=== PATIENT | male | born 1985 | race Hispanic/Latino ===

== ENCOUNTER 2018-12-23 19:45 | Observation (INO) | payer OTHER ==
[~2018-12-23] VITALS: Ht 167.6 cm; Wt 84.8 kg
--- NOTE | 2018-12-23 20:56 | Diagnostic Imaging Report ---
EXAMINATION: CXR 2 VIEW - HOPD INDICATION: Headache, chest tightness ^20181223 ^2029 COMPARISON: None FINDINGS: PA and lateral views TUBES and LINES: None. LUNGS: Lungs are well inflated. There is no evidence of pneumonia or pulmonary edema. PLEURA: No pleural effusion or pneumothorax. HEART AND MEDIASTINUM: The cardiomediastinal silhouette is unremarkable.. BONES AND SOFT TISSUES: No focal osseous lesions. Soft tissues are unremarkable. UPPER ABDOMEN: No free air under the diaphragm. IMPRESSION: No acute thoracic abnormality. Signed by: Dr. Beck Ryan MD on 12/23/2018 8:52 PM
--- NOTE | 2018-12-23 21:04 | Diagnostic Imaging Report ---
EXAMINATION: Head CT without contrast. HISTORY:Headache, left-sided numbness. COMPARISON:None. TECHNIQUE: Multidetector axial images were obtained from the foramen magnum to the vertex without contrast. The images were reconstructed using brain and bone algorithms. Thin section brain images were reformatted into coronal and sagittal planes. Dose modulation, iterative reconstruction, and/or weight based adjustment of the mA/kV was utilized to reduce the radiation dose to as low as reasonably achievable. Intravenous contrast: None IMAGE QUALITY: Acceptable. FINDINGS: Skull/scalp: No lytic or blastic. lesions. No surgical changes. 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 No acute hemorrhage, mass or acute major vascular territorial infarct. Arteries: No density suggestive of thrombosis. Dural sinuses: No abnormal density suggestive of thrombosis. Ventricles: No hydrocephalus or displacement. Extra-axial spaces: Posterior fossa, retrocerebellar extra-axial cystic lesion may represent an arachnoid cyst or ovidio cisterna magna. Brain volume: Normal for age. Craniocervical junction: No mass, Chiari malformation, or basilar invagination. Sella: No mass. Paranasal/mastoid sinuses: Imaged portions unremarkable. IMPRESSION: No acute intracranial abnormality. Signed by: Dr. Brenda Torres M.D. on 12/23/2018 9:01 PM
[2018-12-23] MEDS ORDERED: POTASSIUM CHLORIDE 20 MEQ TAB CR PO STA (21:26)
[2018-12-23] MEDS ORDERED: ONDANSETRON HCL INJ 2MG/ML 2ML 2 MG/ML VIAL IV PRN (21:30)
[2018-12-23] MEDS ORDERED: SODIUM CHLORIDE FLUSH 10 ML SYR INJ PRN (21:30)
[2018-12-23] MEDS ORDERED: ASPIRIN 81 MG CHEW TAB PO NR (21:30)
[2018-12-23] MEDS ORDERED: ASPIRIN 81 MG CHEW TAB PO ONE (21:30)
[2018-12-23] MEDS ORDERED: POTASSIUM CHLORIDE 20 MEQ TAB CR PO NR (21:45)
--- OUTSIDE RECORDS SUMMARY | 2018-12-23 22:02 | XMS REPORT ---
Author Author [facility] Address Unknown Phone Unavailable Care Team Providers [employer] Worker Name Role Phone Ephraim LAMAS Unavailable Unavailable Problems This patient has no known problems. Allergies, Adverse Reactions, Alerts This patient has no known allergies or adverse reactions. Medications This patient has no known medications. Results Test Description Test Time Test Comments Text Results Atomic Results Result Comments CT BRAIN WO-HOPD 2018-12-23 20:56:00 [place] [address] Patient Name: TJ GIBBONS MR #: [id number] : 1985 Age/Sex: 33/M Req #: [id number] [facility] Physician: Ordered by: LINO LAMAS MD Report #: [id number] Location: [facility] Room/Bed: Procedure: [id number] HOPD/CT BRAIN WO-[facility] Exam Date: 12/23/18 Exam Time: 2029 REPORT STATUS: Signed EXAMINATION: Head CT without contrast. HIST ORY:Headache, left-sided numbness. COMPARISON:None. TECHNIQUE: Multidetector axial images were obtained from the foramen magnum to the vertex without contrast. The images were reconstructed using brain and bone algorithms. Thin section brain images were reformatted into coronal and sagittal planes. Dose modulation, iterative reconstruction, and/or weight based adjustment of the mA/kV was utilized to reduce the radiation dose to as low as reasonably achievable. Intravenous contrast: None IMAGE QUALITY: Acceptable. FINDINGS: Skull/scalp: No lytic or blastic. lesions. No surgical changes. 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 No acute hemorrhage, mass or acute major vascular territorial infarct. Arteries: No density suggestive of thrombosis. Dural sinuses: No abnormal density suggestive of thrombosis. Ventricles: No hydrocephalus or displacement. Extra-axial spaces: Posterior fossa, retrocerebellar extra-axial cystic lesion may represent an arachnoid cyst or ovidio cisterna magna. Brain volume: Normal for age. Craniocervical junction: No mass, Chiari malformation, or basilar invagination. Sella: No mass. Paranasal/mastoid sinuses: Imaged portions unremarkable. IMPRESSION: No acute intracranial abnormality. Signed by: Dr. Brenda Torres M.D. on 12/23/2018 9:01 PM Dictated By: BRENDA TORRES MD 00 Transcribed By: CHARITO on 12/23/18 1 COPY TO: LINO LAMAS MD CXR 2 VIEW - HOPD 2018-12-23 20:52:00 [place] [address] Patient Name: TJ GIBBONS MR #: [id number] : 1985 Age/Sex: 33/M Req #: [id number] Adm Physician: Ordered by: LINO LAMAS MD Report #: [id number] Location: [facility] Room/Bed: Procedure: [id number] HOPD/CXR 2 VIEW - HOPD Exam Date: 12/23/18 Exam Time: 2029 REPORT STATUS: Signed EXAMINATION: CXR 2 VIEW - HOPD INDICATION: Headache, chest tightness 20181223 COMPARISON: None FINDINGS: PA and lateral views TUBES and LINES: None. LUNGS: Lungs are well inflated. There is no evidence of pneumonia or pulmonary edema. PLEURA: No pleural effusion or pneumothorax. HEART AND MEDIASTINUM: The cardiomediastinal silhouette is unremarkable.. BONES AND SOFT TISSUES: No focal osseous lesions. Soft tissues are unremarkable. UPPER ABDOMEN: No free air under the diaphragm. IMPRESSION: No acute thoracic abnormality. Signed by: Dr. Migdalia Ryan MD on 12/23/2018 8:52 PM Dictated By: MIGDALIA RYAN MD 51 Transcribed By: CHARITO on 12/23/182051 COPY TO: LINO LAMAS MD
[2018-12-23 23:10] VITALS: BP 122/79
[2018-12-23 23:14] VITALS: BP 122/79
[2018-12-24 04:39] VITALS: BP 136/79
[2018-12-24 05:27] LABS: BASOPHILS # (AUTO) 0.1 (0.0-0.1); BASOPHILS % 0.6 % (0.0-1.0); EOSINOPHILS # (AUTO) 0.3 (0.0-0.4); EOSINOPHILS % 3.2 % (0.0-6.0); HEMATOCRIT 43.5 % (38.2-49.6); HEMOGLOBIN 14.8 g/dL (14.0-18.0); LYMPHOCYTES # (AUTO) 2.6 (1.0-3.2); LYMPHOCYTES % 33.2 % (18.0-39.1); MEAN CORPUSCULAR HEMOGLOBIN 27.8 pg (28-32); MEAN CORPUSCULAR VOLUME 81.6 fL (81-99); MONOCYTES # (AUTO) 0.5 (0.2-0.8); MONOCYTES % 6.4 % (4.4-11.3); NEUTROPHILS # (AUTO) 4.4 (2.1-6.9); NEUTROPHILS % 56.3 % (38.7-80.0); PLATELET COUNT 272 x10e3/uL (140-360); RED BLOOD COUNT 5.33 x10e6/uL (4.3-5.7); RED CELL DISTRIBUTION WIDTH 13.3 % (11.7-14.4)
[2018-12-24 05:50] LABS: CREATINE KINASE MB 2.4 ng/mL (0-5.0)
[2018-12-24 06:11] LABS: ALANINE AMINOTRANSFERASE 37 IU/L (0-55); ALBUMIN 3.9 g/dL (3.5-5.0); ALBUMIN/GLOBULIN RATIO 1.1 (0.8-2.0); ALKALINE PHOSPHATASE 113 IU/L (40-150); ANION GAP 13.6 mmol/L (8-16); BLOOD UREA NITROGEN 10 mg/dL (7-26); BUN/CREATININE RATIO 10 (6-25); CALCIUM 9.3 mg/dL (8.4-10.2); CARBON DIOXIDE 24 mmol/L (22-29); CHLORIDE 106 mmol/L (98-107); CREATININE, SERUM 1.01 mg/dL (0.72-1.25); EST GLOMERULAR FILTRATION RATE > 60 ML/MIN (60-); GLUCOSE 96 mg/dL (74-118); POTASSIUM 4.6 mmol/L (3.5-5.1); SODIUM 139 mmol/L (136-145)
--- NOTE | 2018-12-24 06:18 | NUR ---
Received patient lying in bed with eyes open. Respiration even and unlabored without SOB. Family member at bedside. Denies pain at this time. Call light in reach.
--- NOTE | 2018-12-24 06:34 | NUR ---
H&P cc: face and hand tingling (left) HPI: 33yoM, PCP None , developed tingling of left face, hand and left leg. Has had in past, but lasted longer; No focal weakness; no speech changes or confusion. PMH: cigarette use history, nicotine dependence in remission PSHx: none Allergies; see emrFh/Sh; ; quit cigs meds; see MAR ROS; no f/c/s/N/V/D/HUGHES/vision changes/cp/sob/leg pain/skin rash v/s; revd PE tired appearing anicteric ns1s2 mod bs soft nt nd no e/t skin dry n. affect no visual field deficits; motor 5/5/ in all ext; a&ox3 labs/meds revd A/P: TIA Obesity BMI 30.2 Nicotine dependence in remission PLAN CT negative; get MRI/A. PT consult. ASA; PT consult; hba1c/lipids lovenox Andrew Wilkinson MD, PhD.
[2018-12-24 08:00] VITALS: BP 139/85
[2018-12-24] MEDS ORDERED: ASPIRIN 81 MG CHEW TAB PO SCH (09:00)
[2018-12-24] MEDS ORDERED: ASPIRIN 81 MG ENTERIC COATED PO SCH (09:00)
[2018-12-24 09:37] VITALS: BP 139/85
--- NOTE | 2018-12-24 10:37 | NUR ---
Transported patient to MRI department at this time.
[2018-12-24] MEDS ORDERED: ACETAMINOPHEN 325 MG TAB PO PRN (12:00)
[2018-12-24] MEDS ORDERED: PRAVASTATIN SOD10 MG PO (12:33)
[2018-12-24] MEDS ORDERED: ASPIRIN CHEW81 MG PO (12:33)
--- NOTE | 2018-12-24 12:56 | Diagnostic Imaging Report ---
Examination: MRI BRAIN WO CONTRAST History: 33-year-old female with TIA, headaches and left arm numbness. Comparison studies: December 23, [address] Technique: Sagittal T2; axial DWI, FLAIR, GRE or SWI, T1, Coronal FLAIR. Intravenous contrast: None Findings: Scalp: No abnormal signal. No masses. Bone marrow: Normal in signal intensity. Brain volume: Adequate for age. No volume loss. Ventricles: Normal in size and configuration. No hydrocephalus. Extra-axial spaces: No acute abnormalities. Again demonstrated is a 3.6 x 3.5 x 3.6 cm (superoinferior x anteroposterior x transverse dimensions) CSF equal intensity lesion in the left retrocerebellar region without associated restricted diffusion and mild regional mass effect. This finding represents an arachnoid cyst. Parenchyma: No abnormal signal intensities. No masses, hemorrhage, acute or chronic vascular insults. Suprasellar and sellar region: No abnormalities. Craniocervical junction: No abnormalities. The foramen magnum is patent. No Chiari malformations. Vessels: Normal flow-voids in the arteries and sinuses. Additional findings:Retention cyst within the bilateral maxillary sinuses. IMPRESSION: No acute intracranial abnormalities, specifically, no acute infarct. Unchanged 3.6 x 3.5 x 3.6 cm left retrocerebellar arachnoid cyst when compared to prior head CT performed December 23, 2018. Signed by: Dr. Angeles Wilson M.D. on 12/24/2018 12:52 PM
[2018-12-24 13:00] LABS: CHOL/HDL RATIO 5.7 (3.9-4.7)
[2018-12-24 13:24] VITALS: BP 138/77
[2018-12-24 14:52] LABS: CREATINE KINASE MB 1.6 ng/mL (0-5.0)
--- NOTE | 2018-12-24 15:32 | Diagnostic Imaging Report ---
Neck and intracranial MRAs without IV contrast History: TIA Comparison studies: None Technique: Neck MRA: Axial 2-D [id number] with 3-D MIP reformats. Intracranial MRA: Axial 3-D [id number] with coronal, sagittal and 3-D MIP reformats. Neck MRA: If present, stenosis is calculated utilizing the NASCET method which calculates the degree of stenosis with reference to the normal lumen of the carotid artery distal to the stenosis. Findings: Common carotid arteries: Patent, no flow signal abnormalities Carotid bulbs: Patent, no (0%) stenosis by NASCET criteria. Internal carotid arteries: Patent, no flow signal abnormalities. Vertebral arteries: Patent, no flow limiting stenosis. Intracranial MRA: No aneurysm identified in the [place]. Internal carotid arteries: Patent, no flow signal abnormalities. Middle cerebral arteries: Patent, no proximal branch occlusion or stenosis. Vertebral arteries: Patent, no flow signal abnormalities. Basilar artery: Patent, no flow signal abnormalities. Posterior cerebral arteries: Patent, no proximal branch occlusion or stenosis. Anatomical variants: Anterior commuting indicating artery: Not visualized. Posterior communicating arteries: Patent bilaterally. Vertebral arteries: Codominant. IMPRESSION: Neck and intracranial MRAs: 1. No major branch occlusion or stenosis. 2. No (0%) stenosis at the carotid bulbs by NASCET criteria. Signed by: Dr. Abiel Adhikari M.D. on 12/24/2018 3:29 PM
--- NOTE | 2018-12-24 15:32 | Diagnostic Imaging Report ---
Neck and intracranial MRAs without IV contrast History: TIA Comparison studies: None Technique: Neck MRA: Axial 2-D [id number] with 3-D MIP reformats. Intracranial MRA: Axial 3-D [id number] with coronal, sagittal and 3-D MIP reformats. Neck MRA: If present, stenosis is calculated utilizing the NASCET method which calculates the degree of stenosis with reference to the normal lumen of the carotid artery distal to the stenosis. Findings: Common carotid arteries: Patent, no flow signal abnormalities Carotid bulbs: Patent, no (0%) stenosis by NASCET criteria. Internal carotid arteries: Patent, no flow signal abnormalities. Vertebral arteries: Patent, no flow limiting stenosis. Intracranial MRA: No aneurysm identified in the [place]. Internal carotid arteries: Patent, no flow signal abnormalities. Middle cerebral arteries: Patent, no proximal branch occlusion or stenosis. Vertebral arteries: Patent, no flow signal abnormalities. Basilar artery: Patent, no flow signal abnormalities. Posterior cerebral arteries: Patent, no proximal branch occlusion or stenosis. Anatomical variants: Anterior commuting indicating artery: Not visualized. Posterior communicating arteries: Patent bilaterally. Vertebral arteries: Codominant. IMPRESSION: Neck and intracranial MRAs: 1. No major branch occlusion or stenosis. 2. No (0%) stenosis at the carotid bulbs by NASCET criteria. Signed by: Dr. Abiel Adhikari M.D. on 12/24/2018 3:29 PM
[2018-12-24 16:38] VITALS: BP 134/80
--- NOTE | 2018-12-24 16:49 | NUR ---
PIV to right AC discontinued, catheter intact, no bleeding noted. Transported patient to private vehicle. Patient is discharge to home. All personal belongings taken by family member.
[2018-12-24] MEDS ORDERED: ENOXAPARIN SOD INJ 40 MG/0.4 ML SYR SC SCH (17:00)
== END 2018-12-24 16:49 | disposition home or self-care (01) ==
LOC: FSED 19:45 → ERHOLD 21:19 → IMCU 22:42
PROVIDERS: ADMIT Internal Medicine; ATTEND Internal Medicine
DX: G45.9 Transient cerebral ischemic attack, unspecified (principal); R07.9 Chest pain, unspecified; R51 Headache; Z87.891 Personal history of nicotine dependence; E66.9 Obesity, unspecified; Z68.30 Body mass index [BMI] 30.0-30.9, adult
CPT/HCPCS: 36415; 70450; 70544; 70547; 70551; 71046; 80053 ×2; 80061; 80307; 81003; 82550; 82553 ×2; 83036; 84484 ×2; 85025 ×2; 93005; 97161; 99284; G0378 ×2; J2405

== ENCOUNTER 2022-06-05 18:00 | Emergency (ER) | payer BC, OTHER ==
[~2022-06-05] VITALS: Ht 170.2 cm; Wt 87.7 kg
[~2022-06-05 18:00] MED LIST: ASPIRIN CHEW81 MG PO; PRAVASTATIN SOD10 MG PO
[2022-06-05] MEDS ORDERED: PREDNISONE 20 MG TAB PO ONE (19:00)
[2022-06-05] MEDS ORDERED: PREDNISONE20 MG PO (19:16)
== END 2022-06-05 19:46 | disposition home or self-care (01) ==
LOC: FSED 18:05
DX: L73.9 Follicular disorder, unspecified (principal); L30.9 Dermatitis, unspecified; E78.5 Hyperlipidemia, unspecified
CPT/HCPCS: 99283; J7512